=== PATIENT | male | born 1950 | race Caucasian/White ===

== ENCOUNTER 2017-11-04 09:50 | Emergency (ER) | payer BC ==
[~2017-11-04] VITALS: Ht 175.3 cm; Wt 78.0 kg
[2017-11-04 09:54] VITALS: TEMP 36.8; Ht 175.3 cm; Wt 78.0 kg
--- NOTE | 2017-11-04 10:07 | EMERGENCY ROOM VISIT NOTE ---
History Report prepared by Kaelaibe: Adela Zhao Under the Supervision of: Dr. Twin Reed M.D. First contact with patient: 10:00 Chief Complaint: FALL Stated Complaint: FELL ON SHOULDER History of Present Illness The patient is a 67 year old male who presents to the Emergency Room with complaints of a fall that occurred prior to arrival. He reports he slipped on ice as he was shoveling snow this morning, and landed on his right shoulder. He rates his discomfort as a 5/10 in severity. He also complains of left sided chest pain. He denies hitting his head during the fall or any loss of consciousness. Source of History: patient Onset: ENDOSCOPY RN Position: other (global) Timing: resolved Associated Symptoms: No LOC, No headache Review of Systems All systems have been listed, reviewed, and are negative other than those previously mentioned. Please see Additional Medical History Sheet. Past Medical & Surgical Medical Problems: (1) Cataract (2) Inguinal hernia Surgical Problems: (1) History of shoulder surgery (2) History of YAG laser capsulotomy of lens of right eye Family History FH: heart disease Hypertension Kidney disease Kidney stones Social History Smoking Status: Never Smoker Alcohol Use: none Drug Use: none Marital Status: Housing Status: lives with significant other Occupation Status: retired Current/Historical Medications Scheduled Ascorbic Acid (Ascorbic Acid), Unknown Dose PO DAILYBB Cholecalciferol (Vitamin D), Unknown Dose PO DAILY Coenzyme Q10 (Ubidecarenone) (Co Q 10), PO DAILY Lysine Hcl (Lysine), Unknown Dose PO DAILY Multivitamin (Multivitamin), 1 TABS PO DAILY Sildenafil Citrate (Viagra), 50 MG PO PRN Scheduled PRN Ibuprofen (Advil), 200 MG PO UD PRN for Pain Miscellaneous Medications B-Complex Vitamins (B Complex) Allergies Coded Allergies: Codeine (Verified Allergy, Mild, NAUSEA, 11/04/17) Physical Exam Vital Signs Date Time Temp Pulse Resp B/P (MAP) Pulse Ox O2 Delivery O2 Flow Rate FiO2 11/04/17 11:27 74 16 140/85 97 11/04/17 09:54 36.8 90 18 158/96 97 Physical Exam GENERAL: Patient awake, alert, oriented x 3. Patient follows commands. Patient does not appear toxic. Patient is adequately hydrated and well- nourished. SKIN: No erythema, pallor, cyanosis or rash HEENT: Normal head, pupils equal, reactive to light and accommodation. Oral cavity and posterior pharynx appear normal. Neck: Without adenopathy, no neck vein distention. LUNGS: Pain on inspiration. Clear to auscultation. No wheezes, no rales, no rhonchi. CHEST: Pain beneath left breast. No skin break or bruising noted. HEART: No murmurs. No gallops. No rubs ABDOMEN: No masses, no rebound, no hepatomegaly or splenomegaly. EXTREMITIES: Old scar over top of left shoulder, moderate tenderness on palpation of proximal humerus. No signs of trauma. NEUROLOGIC: Cranial nerves II-XII within normal limits. No gross motor sensory function deficits. Medical Decision & Procedures ER Provider Diagnostic Interpretation: Radiology results as stated below per my review and radiologist interpretation: L HUMERUS MIN 2 VIEWS ROUTINE CLINICAL HISTORY: 67 years-old Male presenting with fall proximal humerus. TECHNIQUE: Frontal and lateral views of the left humerus were obtained. COMPARISON: None. FINDINGS: Glenohumeral and acromioclavicular joints congruent. Elbow joint grossly congruent. No acute fracture or malalignment. No advanced degenerative change. No radiographic soft tissue abnormality. IMPRESSION: No acute osseous injury of the left humerus. Electronically signed by: Flo Castro M.D. 11/04/2017 10:57 AM RIBS UNILATERAL WITH PA CHEST CLINICAL HISTORY: 67 years-old Male presenting with fall anterior 5-8 ribs. TECHNIQUE: Frontal and oblique views of the left ribs and PA view of the chest were obtained. COMPARISON: Chest x-ray from 07/22/2016. FINDINGS: Atherosclerosis of aortic arch. Cardiac silhouette normal in size. Minimal opacities at the left lung base. No other focal infiltrate. No large effusion or pneumothorax. No displaced rib fracture. Upper abdomen normal. IMPRESSION: 1. No acute cardiopulmonary disease. 2. No displaced left rib fracture. Electronically signed by: Flo Castro M.D. 11/04/2017 10:56 AM ED Course 1000: Past medical records reviewed. The patient was evaluated in room A11. A complete history and physical examination was performed. 1115: I reevaluated the patient. He is feeling well and resting comfortably. I discussed his results and discharge instructions and he verbalized complete understanding and agreement. Medical Decision The differential diagnoses considered include humeral fracture, rib fracture, AC separation and shoulder dislocation. X-rays of the humerus, chest and ribs were obtained. No fractures, dislocations or separations were identified. The patient has no pneumothorax. The patient does have difficulty with abduction of his arm. He may have an underlying rotator cuff injury. In the meantime, the patient will be placed in a sling with ice. He will use ibuprofen for pain. The patient should be reevaluated by orthopedics in one week if range of motion is not improving. Medication Reconcilliation Current Medication List: was personally reviewed by me Blood Pressure Screening Patient's blood pressure: Elevated blood pressure Blood pressure disposition: Elevated BP felt to be situational Impression Primary Impression: Chest wall contusion Additional Impression: Contusion of left shoulder Scribe Attestation The scribe's documentation has been prepared under my direction and personally reviewed by me in its entirety. I confirm that the note above accurately reflects all work, treatment, procedures, and medical decision making performed by me. Departure Information Dispostion Home / Self-Care Referrals Kym Gould D.OZuhair (PCP) Patient Instructions My [facility] Additional Instructions Apply ice intermittently to your left shoulder over the next 24 hours. 600 mg of ibuprofen every 6 hours as needed for pain. Use the sling as needed for comfort. Follow-up with orthopedics in one week if your range of motion is not improving. Problem Qualifiers
[2017-11-04] MEDS ORDERED: COEN10CA5 PO (10:21)
[2017-11-04] MEDS ORDERED: LYSI100010 PO (10:21)
[2017-11-04] MEDS ORDERED: ASCO500T16 PO (10:21)
[2017-11-04] MEDS ORDERED: B-CO1CAP3 (10:21)
[2017-11-04] MEDS ORDERED: VGR50 PO (10:21)
[2017-11-04] MEDS ORDERED: IBUP-1050 PO (10:21)
[2017-11-04] MEDS ORDERED: CHOL200010 PO (10:21)
[2017-11-04] MEDS ORDERED: MULT-506 PO (10:21)
--- NOTE | 2017-11-04 10:57 | DIAGNOSTIC IMAGING REPORT ---
L RIBS UNILATERAL WITH PA CHEST CLINICAL HISTORY: 67 years-old Male presenting with fall anterior 5-8 ribs. TECHNIQUE: Frontal and oblique views of the left ribs and PA view of the chest were obtained. COMPARISON: Chest x-ray from 07/22/2016. FINDINGS: Atherosclerosis of aortic arch. Cardiac silhouette normal in size. Minimal opacities at the left lung base. No other focal infiltrate. No large effusion or pneumothorax. No displaced rib fracture. Upper abdomen normal. IMPRESSION: 1. No acute cardiopulmonary disease. 2. No displaced left rib fracture. Electronically signed by: Flo Castro M.D. 11/04/2017 10:56 AM Dictated Date/Time: 11/04/2017 10:55 AM
--- NOTE | 2017-11-04 10:58 | DIAGNOSTIC IMAGING REPORT ---
L HUMERUS MIN 2 VIEWS ROUTINE CLINICAL HISTORY: 67 years-old Male presenting with fall proximal humerus. TECHNIQUE: Frontal and lateral views of the left humerus were obtained. COMPARISON: None. FINDINGS: Glenohumeral and acromioclavicular joints congruent. Elbow joint grossly congruent. No acute fracture or malalignment. No advanced degenerative change. No radiographic soft tissue abnormality. IMPRESSION: No acute osseous injury of the left humerus. Electronically signed by: Flo Castro M.D. 11/04/2017 10:57 AM Dictated Date/Time: 11/04/2017 10:56 AM
[2017-11-04 11:27] VITALS: BP 140/85; PULSE 74; O2SAT 97
== END 2017-11-04 11:32 | disposition home or self-care (01) ==
LOC: C.EDB 09:51 → C.EDA 11:32
DX: S20.20XA Contusion of thorax, unspecified, initial encounter (principal); S40.011A Contusion of right shoulder, initial encounter; W00.0XXA Fall on same level due to ice and snow, initial encounter; Y93.H1 Activity, digging, shoveling and raking; Z82.49 Family history of ischemic heart disease and other diseases of the circulatory system; Z84.1 Family history of disorders of kidney and ureter

== ENCOUNTER → 2017-12-26 | Day surgery (SDC) | payer BC ==
--- NOTE | 2017-12-03 13:49 | DIAGNOSTIC IMAGING REPORT ---
CHEST 2 VIEWS ROUTINE HISTORY: 67 years-old Male M75.122 PRE-OP preoperative exam. No acute chest complaints. COMPARISON: Chest and rib series radiographs 11/04/2017 TECHNIQUE: PA and lateral views of the chest FINDINGS: Cardiac silhouette is mildly enlarged. No pneumothorax or large pleural effusion. There are patchy subsegmental left basilar opacities noted. No overt pulmonary edema. Bones of the chest appear grossly intact. Degenerative changes are noted within the spine and shoulders. IMPRESSION: Mild subsegmental left basilar atelectasis without acute process. The above report was generated using voice recognition software. It may contain grammatical, syntax or spelling errors. Electronically signed by: Gael Hansen M.D. 12/03/2017 1:48 PM Dictated Date/Time: 12/03/2017 1:47 PM
[2017-12-03 14:35] LABS: BASO % 0.4 %; BASO ABS # 0.03 K/uL (0-0.2); EOS ABS # 0.07 K/uL (0-0.5); HEMATOCRIT 44.8 % (42-52); HEMOGLOBIN 15.5 g/dL (14.0-18.0); IG# 0.01 K/uL (0.00-0.02); LYMPH ABS # 2.38 K/uL (1.2-3.4); MEAN CELL VOLUME 91.8 fL (80-100); MEAN CORPUSCULAR HEMOGLOBIN 31.8 pg (25-34); MEAN CORPUSCULAR HGB CONC 34.6 g/dl (32-36); MEAN PLATELET VOLUME 11.6 fL (7.4-10.4); MONO % 8.9 %; MONO ABS # 0.62 K/uL (0.11-0.59); NEUT % 55.6 %; NEUT ABS # 3.89 K/uL (1.4-6.5); PLATELET COUNT 265 K/uL (130-400); RED CELL DISTRIBUTION WIDTH CV 13.8 % (11.5-14.5); RED CELL DISTRIBUTION WIDTH SD 46.2 fL (36.4-46.3)
[2017-12-10 09:04] VITALS: Ht 175.3 cm; Wt 75.0 kg
[~2017-12-26] VITALS: Ht 175.3 cm; Wt 75.0 kg
[~2017-12-26] MED LIST: ASCO500T16 PO; ATROPINE SULFATE 0.1 MG/ML 5ML SYR IV PRN; B-CO1CAP3 PO; BUPIVACAINE 0.25% 30 ML VIAL ONE; CEFAZOLIN 2000MG IV PUSH 15 ML IV SCH; CHOL1TAB PO; COEN50CA PO; DEXAMETHASONE SOD INJ 4 MG/ML VIAL ONE; EpHEDrine SULFATE 50MG/5ML SYR ONE; EpINEphrine INJ 1MG/ML AMP 1 MG/ML AMP ONE; FENTANYL CITRATE INJ 50 MCG/1 ML 2 ML VIAL IV PRN; FENTANYL CITRATE INJ 50 MCG/1 ML 2 ML VIAL ONE; IBUP-1050 PO; KETO10TA PO; KETOROLAC TROMETHAMINE 30 MG/ML VIAL IV. PRN; LABETALOL HCL IV 5 MG/ML 20ML IV PRN; LACTATED RINGER'S 1000ML 1,000 ML IV SCH; LIDOCAINE HCL 2% 2 ML VIAL (20MG/ML) ONE; LYSI1TAB12 PO; MIDAZOLAM HCL 1 MG/ML 2ML VIAL ONE; MULT-506 PO; ONDANSETRON INJ 2 MG/ML 2 ML VIAL IV PRN; ONDANSETRON INJ 2 MG/ML 2 ML VIAL ONE; OXYC-57 PO; OXYCODONE/ACETAMINOPHEN 5-325 TAB PO PRN; PROPOFOL IV EMULSION 10 MG/ML 20 ML VIAL IV ONE; ROPIVACAINE 0.5% 5 MG/ML 30 ML VIAL ONE; SODIUM CHLORIDE 0.9% 1000ML 1,000 ML IV SCH; VGR50 PO
--- NOTE | 2017-12-26 08:04 | History & Physical Bridge - SC ---
H&P Re-Evaluation Bridge Note: I have examined the patient, reviewed the History & Physical and in the interval since the performance of the History & Physical I have noted the following changes of clinical significance: No changes noted
--- NOTE | 2017-12-26 10:01 | [facility] Post Operative Brief Note ---
Immediate Operative Summary Operative Date Dec 26, 2017. Pre-Operative Diagnosis Left Shoulder Rotator Cuff Tear Post-Operative Diagnosis Same Procedure(s) Performed Left Shoulder Arthroscopy, Large Rotator Cuff Repair, Biceps Tenodesis Surgeon Dr. Burgos Folding Rules Printing Machine Operator Surgeon(s) Morro Daly PA-C Estimated Blood Loss 5 mL Findings Consistent with Post-Op Diagnosis Specimens None Anesthesia Type General Regional Complication(s) none Disposition Disposition: Recovery Room / PACU
--- NOTE | 2017-12-26 10:18 | Discharge Instructions-SurgCtr ---
Discharge Instructions Date of Service Dec 26, 2017. Visit Reason for Visit: Lt Shoulder Full Thicknss Rotatr Cuff Tear,M75.122 Discharge Discharge Diagnosis / Problem: SAME ABOVE Discharge Goals Goal(s): Decrease discomfort, Improve function Activity Recommendations Activity Limitations: as noted below Lifting Limitations: until after follow-up appointment Exercise/Sports Limitations: until after follow-up appointment Shower/Bathe: tomorrow Anesthesia . Post Anesthesia Instructions: If you have had General Anesthesia or IV Sedation: * Do not drive today. * Resume driving when surgeon permits. * Do not make important decisions or sign legal documents today. * Call surgeon for: 1. Temperature elevations greater than 101 degrees F. 2. Uncontrollable pain. 3. Excessive bleeding. 4. Persistent nausea and vomiting. 5. Medication intolerance (nausea, vomiting or rash). * For nausea and vomiting use only clear liquids such as: tea, soda, bouillon until nausea subsides, then gradually increase diet as tolerated. * If you have any concerns or questions, call your surgeon's office. If physician is unavailable and it is an emergency, call 911 or go to the nearest emergency room. . Instructions / Follow-Up Instructions / Follow-Up MEDICATIONS: * Resume previous medications unless instructed otherwise by your surgeon. * Always take pain medication on a full stomach or with food to avoid upset stomach. * Do not drink alcohol or drive while taking narcotics. * Ibuprofen or Tylenol may be taken if narcotic not needed. SPECIAL CARE INSTRUCTIONS: __ None _X_ Keep extremity elevated and iced x 48 hours; apply ice 20-30 minutes 8-10 times/day. May remove at night. __ Sling __24 hrs/day __ Remove at night _X_ Shoulder Immobilizer __ 24 hrs/day __ Remove at night _X_ Dressing __ Maintain until seen in office, may shower with plastic over site _X_ Remove dressings in 24-48 hours and then may shower _X_ Cover incisions with band-aids after showering __ Do not remove steri-strips Call physician if chills or temperature rises above 102 degrees or pain unrelieved by prescribed pain medications at . . MEDICATIONS: * Resume previous medications unless instructed otherwise by your surgeon. * Always take pain medication on a full stomach or with food to avoid upset stomach. * Do not drink alcohol or drive while taking narcotics. * Ibuprofen or Tylenol may be taken if narcotic not needed. SPECIAL CARE INSTRUCTIONS: __ None __ Keep extremity elevated and iced x 48 hours; apply ice 20-30 minutes 8-10 times/day. May remove at night. __ Sling __24 hrs/day __ Remove at night __ Shoulder Immobilizer __ 24 hrs/day __ Remove at night __ Dressing __ Maintain until seen in office, may shower with plastic over site __ Remove dressings in 24-48 hours and then may shower __ Cover incisions with band-aids after showering __ Do not remove steri-strips Call physician if chills or temperature rises above 102 degrees or pain unrelieved by prescribed pain medications at . . Diet Recommendations Home Diet: no limitations Fluid Restriction: None Procedures Procedures Performed: Left Shoulder Arthroscopy, Large Rotator Cuff Repair, Biceps Tenodesis Pending Studies Studies pending at discharge: no Work Instructions Return To Work: after follow-up Lifting Limitations: NO LIFTING WITH LEFT ARM Medical Emergencies . Who to Call and When: Medical Emergencies: If at any time you feel your situation is an emergency, please call 911 immediately. . Non-Emergent Contact Non-Emergency issues call your: Primary Care Provider Call Non-Emergent contact if: you have a fever, temperature is above 101.5 . . "Provider Documentation" section prepared by Peter Daly. .
[2017-12-26 10:56] VITALS: TEMP 36.2
[2017-12-26 11:29] VITALS: BP 146/94; PULSE 94; O2SAT 96
--- NOTE | 2017-12-26 11:30 | Anesthesia Progress Nt - [facility] ---
Anesthesia Post Op Note Date & Time Dec 26, 2017 at 11:30 Vital Signs Pain Intensity: 0 Vital Signs Past 12 Hours Date Time Temp Pulse Resp B/P (MAP) Pulse Ox O2 Delivery O2 Flow Rate FiO2 12/26/17 10:56 36.2 88 16 144/88 (106) 96 Room Air 12/26/17 10:48 36.7 88 12 128/90 97 Room Air 12/26/17 10:47 95 19 97 12/26/17 10:47 93 19 12/26/17 10:46 128/90 12/26/17 10:42 97 12 98 12/26/17 10:42 98 12 12/26/17 10:41 136/87 12/26/17 10:37 93 16 98 12/26/17 10:37 93 16 12/26/17 10:36 144/93 12/26/17 10:32 94 18 100 12/26/17 10:32 92 18 12/26/17 10:31 147/95 12/26/17 10:29 97 14 100 12/26/17 10:29 96 14 12/26/17 10:26 146/90 12/26/17 10:21 133/89 12/26/17 10:19 84 25 142/78 99 12/26/17 10:19 85 25 12/26/17 10:15 36.5 95 16 138/81 96 Mask 6 12/26/17 08:18 69 94 12/26/17 08:18 71 12/26/17 08:16 133/86 12/26/17 08:13 79 12/26/17 08:13 79 18 96 12/26/17 08:12 74 12/26/17 08:12 85 96 12/26/17 08:11 135/86 12/26/17 08:07 68 97 12/26/17 08:07 69 12/26/17 08:06 130/82 12/26/17 08:03 73 12/26/17 08:03 73 96 12/26/17 08:01 138/82 12/26/17 07:58 72 94 12/26/17 07:58 71 12/26/17 07:56 124/91 12/26/17 07:53 78 12 98 12/26/17 07:53 80 12/26/17 07:51 151/90 12/26/17 07:48 87 15 99 12/26/17 07:48 81 12/26/17 07:47 173/108 12/26/17 07:43 78 97 12/26/17 07:43 78 12/26/17 07:38 76 97 12/26/17 07:38 77 12/26/17 07:33 80 97 12/26/17 07:33 84 12/26/17 07:28 81 12/26/17 07:28 79 97 12/26/17 07:23 78 12/26/17 07:23 78 98 12/26/17 07:18 80 12/26/17 07:18 79 99 12/26/17 07:13 75 12/26/17 06:28 36.6 89 18 154/101 (118) 96 Room Air Notes Mental Status: alert / awake / arousable, participated in evaluation Pt Amnestic to Procedure: Yes Nausea / Vomiting: adequately controlled Pain: adequately controlled Airway Patency, RR, SpO2: stable & adequate BP & HR: stable & adequate Hydration State: stable & adequate Anesthetic Complications: no major complications apparent
--- NOTE | 2017-12-26 17:11 | OPERATIVE REPORT ---
DATE OF OPERATION: 12/26/2017 PREOPERATIVE DIAGNOSIS: Large left rotator cuff tear. POSTOPERATIVE DIAGNOSIS: Same. PROCEDURES: Left shoulder diagnostic arthroscopy with extensive debridement, large rotator cuff repair and arthroscopic biceps tenodesis. SURGEON: Dr. Tae Burgos. COMMERCIAL JOURNEYMAN ELECTRICIAN: Leland Daly PA-C, whose assistance was necessary for positioning the arm and helping with instrumentation. ANESTHESIA: General with left interscalene nerve block. COMPLICATIONS: None. CONDITION: Stable to PACU. INDICATIONS: Carlos is a pleasant 67-year-old male who presented to my office with left shoulder pain and weakness after falling on the ice while shoveling the snow around [place]. MRI and clinical examination were diagnostic for a large acute rotator cuff tear. After failing conservative treatment, he elected to undergo arthroscopy. DESCRIPTION OF PROCEDURE: On 12/26/2017, he arrived at [facility] for the above procedure. He was seen in the preoperative holding area and the operative extremity was identified and signed. He was given appropriate antibiotic and a left interscalene nerve block. He was taken back to the operating room, laid on the table in supine position and put under general anesthesia. He was then put into the beachchair position. The left shoulder was prepped and draped in sterile fashion. Time-out was done and the patient's operative extremity was properly identified. A scope was introduced into the posterior portal. Diagnostic arthroscopy showed no cartilage damage to the humeral head or the glenoid. There was a little fraying of the anterior labrum. The biceps tendon was very frayed. The subscapularis was intact. There was a tear of the entire supraspinatus and upper border of the infraspinatus. The teres minor was intact. An anterior portal was made. A shaver was used to do a limited debridement of the intraarticular structures and the biceps tendon was arthroscopically tenotomized for later tenodesis. A scope was then put into the subacromial space. A lateral portal was made. A shaver was used to do a complete subacromial and subdeltoid bursectomy. An ablator was used to tease the coracoacromial ligament off the undersurface of the acromion and a 5-0 yancy was used to complete an acromioplasty of a Bigliani type 3 acromion. A shaver was used to remove any excess debris and attention was turned to the rotator cuff. An extensive debridement was then done around the cuff tissue to better visualize the tear. It was a crescent-shaped tear. The greater tuberosity was prepared with a ring curette and a microfracture. The rotator cuff was then fixed with an Arthrex suspension bridge configuration using BioComposite SwiveLock suture anchors and FiberTapes. This gave a nice knotless repair. Multiple pictures were taken. The long head of the biceps tendon was tagged with a FiberLink and incorporated into the anterior medial anchor to complete an arthroscopic biceps tenodesis. The scope was placed back into the glenohumeral joint and the articular margin of the rotator cuff had been restored. Pictures were taken. Arthroscopic instruments were removed from the shoulder. Portal sites were closed with 3-0 nylon. He was then placed in a soft dressing and abduction arm sling. He was then extubated, transferred to a litter and taken to the postanesthesia care unit in stable condition. He tolerated the procedure well. I attest to the content of the Intraoperative Record and any orders documented therein. Any exception s are noted below.
== END | disposition home or self-care (01) ==
LOC: X.SURG 06:17
PROVIDERS: ATTEND Orthopaedic Surgery
DX: M75.122 Complete rotator cuff tear or rupture of left shoulder, not specified as traumatic (principal); Z88.5 Allergy status to narcotic agent; Z82.49 Family history of ischemic heart disease and other diseases of the circulatory system; Z82.3 Family history of stroke